=== PATIENT | female | born 1935 | race Caucasian/White ===

== ENCOUNTER 2016-10-24 07:53 | Emergency (ER) | payer MEDICARE, OTHER ==
[~2016-10-24] VITALS: Ht 160 cm; Wt 58.0 kg
[~2016-10-24 07:53] MED LIST: ACET-2264 PO; ALEN10TA5 PO; ASPI-860 PO; CHOL2000 PO; LOVA40TA2 PO; METH454P PO
--- OUTSIDE RECORDS SUMMARY | 2016-10-24 07:56 | XMS REPORT ---
Author Adonis Sexton Organization [employer] Address Unknown Phone Unavailable Care Team Providers Care Medical Safety Director Name Role Phone Adonis Contreras CP Unavailable Allergies, Adverse Reactions, Alerts Substance Reaction Event Type N.K.D.A. Info Not Available Non Drug Allergy Problems Problem Type Condition Code Onset Dates Condition Status Problem Aortic stenosis I35.0 Active Assessment Aortic stenosis I35.0 Active Problem Dyslipidemia E78.5 Active Assessment Dyslipidemia E78.5 Active Medications Medication Code System Code Instructions Start Date End Date Status Dosage Alendronate Sodium [facility] [address]-04 70 MG Orally qwk 1 tablet Vitamin D3 [facility] [address]-19 1000 UNIT Orally Once a day 1 tablet Calcium + D3 [facility] [address]-59 600-200 MG-UNIT Orally not defined Atorvastatin Calcium [facility] [address]-16 40 MG Orally Once a day 1 tablet Procedures Procedure Coding System Code Date Office Visit, Est Pt., Level 3 CPT-4 26217 December 17, 2015 ELECTROCARDIOGRAM, COMPLETE CPT-4 85971 December 17, 2015 Vital Signs Date/Time: December 17, 2015 BMI 22.67 Index Weight 128 lbs Height 63 in Cardiac Monitoring Heart Rate 74 /min Oximetry 95 % Blood Pressure Diastolic 70 mm Hg Blood Pressure Systolic 120 mm Hg Results No Known Results Summary Purpose [employer] Submission
[2016-10-24] MEDS ORDERED: CYAN250014 PO (08:17)
[2016-10-24 08:50] LABS: BASOPHILS % (AUTO) 1 % (0-2); EOSINOPHILS # (AUTO) 0.1 10^3uL; EOSINOPHILS % (AUTO) 2 % (0-4); LYMPHOCYTES # (AUTO) 1.1 X10^3; MEAN CORPUSCULAR HGB CONC 33.9 g/dL (31.0-37.0); MEAN CORPUSCULAR VOLUME 93 FL (80-100); MEAN PLATELET VOLUME 8.9 FL (6.0-9.5); MONOCYTES # (AUTO) 0.2 X10^3; MONOCYTES % (AUTO) 4 % (3-11); NEUTROPHILS # (AUTO) 4.3 X10^3; NEUTROPHILS % (AUTO) 75 % (51-67); PLATELET COUNT 243 10^3uL (150-450); WHITE BLOOD COUNT 5.74 10^3uL (4.0-11.0)
[2016-10-24 08:55] LABS: MEAN CORPUSCULAR HEMOGLOBIN 31.4 PG (26.0-34.0)
[2016-10-24 09:01] LABS: ALBUMIN 4.6 g/dL (3.4-5.0); ALKALINE PHOSPHATASE 77 U/L (38-126); ANION GAP 15.8 MEQ/L (3-15); BUN/CREATININE RATIO 22 (10-20); CALCULATED IONIZED CALCIUM 3.9 mg/dL (3.8-4.6); TOTAL PROTEIN 8.2 g/dL (6.4-8.5)
[2016-10-24 10:31] VITALS: BP 187/80
--- NOTE | 2016-10-24 10:35 | Diagnostic Imaging Report ---
EXAMINATION: Portable chest INDICATION: High blood pressure and dizziness. FINDINGS: There is enlargement of the cardiac silhouette but no evidence to suggest failure. There is no effusion demonstrated. There is no pneumothorax. No focal pulmonary infiltrates. IMPRESSION: 1. Enlarged cardiac silhouette without evidence of edema or failure 2. No focal pulmonary infiltrate demonstrated. 3. No evidence of pleural effusion or pneumothorax. Dictated by: Dictated on workstation # [id number]
== END 2016-10-24 10:15 | disposition home or self-care (01) ==
LOC: ED 07:56
DX: R42 Dizziness and giddiness (principal); E78.5 Hyperlipidemia, unspecified
CPT/HCPCS: 36415; 71010; 80053; 84443; 84484; 85025; 93005; 99283; 99285